=== PATIENT | male | born 1990 | race Caucasian/White ===

== ENCOUNTER 2017-10-26 20:00 | Inpatient (IN) | payer BC, OTHER ==
[~2017-10-26] VITALS: Ht 172.7 cm; Wt 103.9 kg
[2017-10-26] MEDS ORDERED: normal saline 1000ML IV soln IVB ONE (20:10)
[2017-10-26 20:26] LABS: BASOPHILS % (AUTO) 0.3 % (0-1); EOSINOPHILS # (AUTO) 0.3 X10'3 (0-0.9); EOSINOPHILS % (AUTO) 3.2 % (0-6); HEMATOCRIT 45.7 % (42.0-52.0); HEMOGLOBIN 15.5 g/dl (14.0-17.9); LYMPHOCYTES # (AUTO) 2.8 X10'3 (1.1-4.8); LYMPHOCYTES % (AUTO) 26.4 % (21-51); MEAN CORPUSCULAR HEMOGLOBIN 30.2 PG (27.0-31.0); MEAN CORPUSCULAR VOLUME 88.9 FL (78-98); MEAN PLATELET VOLUME 7.9 FL (7.4-10.4); NEUTROPHILS # (AUTO) 6.6 X10'3 (1.8-7.7); NEUTROPHILS % (AUTO) 61.1 % (42-75); PLATELET COUNT 212 X10'3 (140-440); RED BLOOD COUNT 5.14 X10'6 (4.70-6.10); RED CELL DISTRIBUTION WIDTH 13.4 % (11.5-14.5); WHITE BLOOD COUNT 10.8 X10'3 (4.5-11.0)
[2017-10-26 20:50] LABS: ALANINE AMINOTRANSFERASE 35 U/L (12-78); ALBUMIN 3.6 G/DL (3.4-5.0); ALKALINE PHOSPHATASE 102 IU/L (46-116); ANION GAP 10 (8-16); ASPARTATE AMINO TRANSFERASE 22 U/L (10-37); BILIRUBIN,TOTAL 0.4 MG/DL (0.1-1.0); BLOOD UREA NITROGEN 8 MG/DL (7-18); BUN/CREATININE RATIO 10.4 (5.4-32.0); CHLORIDE 105 MMOL/L (99-107); CREATININE 0.77 MG/DL (0.60-1.10); GLUCOSE 168 MG/DL (70-104); POTASSIUM 3.3 MMOL/L (3.5-5.1); SODIUM 141 MMOL/L (135-145); TOTAL CARBON DIOXIDE 26.3 MMOL/L (24-32); TOTAL PROTEIN 7.3 G/DL (6.4-8.2); eGFR > 90 ML/MIN
[2017-10-26 20:55] LABS: URINE AMPHETAMINE SCREEN NEGATIVE (Neg); URINE BARBITUATE SCREEN NEGATIVE (Neg); URINE BENZODIAZEPINES SCREEN NEGATIVE (Neg); URINE CANNABINOID SCREEN NEGATIVE (Neg); URINE COCAINE SCREEN NEGATIVE (Neg); URINE METHADONE SCREEN NEGATIVE (Neg); URINE OPIATE SCREEN NEGATIVE (Neg); URINE PHENCYCLIDINE SCREEN NEGATIVE (Neg)
[2017-10-26 21:06] LABS: PARTIAL THROMBOPLASTIN TIME 27 SECONDS (22-32); PROTHROMBIN TIME 10.8 SECONDS (9.0-12.0)
[2017-10-26 21:17] LABS: CLARITY,URINE Clear (Clear); COLOR,URINE Yellow (Yellow); GLUCOSE, URINE 100 mg/dl (Neg); KETONES,URINE Negative (Neg); LEUKOCYTE ESTERASE ,URINE Negative (Neg); NITRITES, URINE Negative (Neg); OCCULT BLOOD,URINE Negative (Neg); PH,URINE 6.5 (4.8-8.0); PROTEIN,URINE Negative (Neg); UROBILINOGEN,URINE 0.2 E.U/dL (0.2-1.0)
[2017-10-26 21:25] LABS: UA COLLECTION TYPE FOLEY CATH
[2017-10-26] MEDS: propofol 1000mg/100ml bottle 100 ML IV PRN (21:36)
[2017-10-26 22:20] LABS: CREATINE KINASE 82 U/L (39-308)
[2017-10-26] MEDS ORDERED: ondansetron/PF 4mg/2ml inj IV PRN (22:25)
[2017-10-26] MEDS ORDERED: midazolam 100mg in NS 100ml 100 ML IV PRN (22:25)
[2017-10-26] MEDS ORDERED: acetaminophen 325mg tablet PO PRN ×2 (22:25)
[2017-10-26] MEDS: normal saline 1000ml 1,000 ML IV SCH (22:25)
[2017-10-26] MEDS ORDERED: potassium Cl 20 mEq SR tablet PO PRN ×2 (22:25)
[2017-10-26] MEDS ORDERED: FENTANYL-0.9 % NACL/PF 100 ML IV PRN (22:25)
[2017-10-26] MEDS ORDERED: potassium Cl 40MEQ/NS 500ml 500 ML IV PRN ×2 (22:25)
[2017-10-26] MEDS ORDERED: ipratropium/albuterol 3ml nebule NEB PRN (22:25)
[2017-10-26] MEDS ORDERED: magnesium hydroxide 30ml (MOM) UD suspension PO PRN (22:25)
[2017-10-26] MEDS: K, MAG and/or Phos replacement - Verify level? MC SCH (22:25)
[2017-10-26 22:56] LABS: ABG BASE EXCESS -1.7 mmol/L (-2.0-3.0); ABG HCO3 24.8 mmol/L (22.0-26.0); ABG OXYGEN SATURATION 98.3 % (95-98); ABG PCO2 (T) 44.7 mmHg (35.0-48.0); ABG PH (T) 7.353 (7.350-7.450); ABG PO2 (T) 121.8 mmHg (83-108); ALLEN'S TEST Positive; FCOHb 3.6 % (0.5-1.5); FMetHb 0.2 % (0.3-1.12); FO2Hb 94.6 % (94-100); MINUTE VOLUME 9 L/min; PATIENT TEMPERATURE 35.3; PEEP 5 cm H2O; RESPIRATORY RATE 16 b/min; RESPIRATORY RATE (OBSERVED) 16 b/min; TIDAL VOLUME 500 mL; TOTAL HEMOGLOBIN 15.9 G/dl (14.0-18.0)
[2017-10-26 23:16] LABS: OSMOLALITY 291 MOSM/K (280-300)
[2017-10-26 23:31] LABS: ACETAMINOPHEN < 2.0 UG/ML (10-30)
[2017-10-26 23:45] VITALS: BP 166/84
[2017-10-27] VITALS (24 sets, daily range): BP systolic 98–164; BP diastolic 53–86
[2017-10-27] MEDS: propofol 1000mg/100ml bottle 100 ML IV PRN (00:21)
[2017-10-27 03:25] LABS: ABG BASE EXCESS -0.7 mmol/L (-2.0-3.0); ABG HCO3 24.1 mmol/L (22.0-26.0); ABG OXYGEN SATURATION 98.9 % (95-98); ABG PCO2 (T) 37.5 mmHg (35.0-48.0); ABG PH (T) 7.419 (7.350-7.450); ABG PO2 (T) 166.9 mmHg (83-108); ALLEN'S TEST Positive; FCOHb 1.2 % (0.5-1.5); FMetHb 0.2 % (0.3-1.12); FO2Hb 97.5 % (94-100); MINUTE VOLUME 9 L/min; PATIENT TEMPERATURE 35.5; PEEP 5 cm H2O; RESPIRATORY RATE 16 b/min; RESPIRATORY RATE (OBSERVED) 16 b/min; TIDAL VOLUME 500 mL; TOTAL HEMOGLOBIN 15.3 G/dl (14.0-18.0)
[2017-10-27 05:18] LABS: BASOPHILS # (AUTO) 0.1 X10'3 (0-0.2); BASOPHILS % (AUTO) 0.4 % (0-1); EOSINOPHILS # (AUTO) 0.3 X10'3 (0-0.9); EOSINOPHILS % (AUTO) 1.6 % (0-6); HEMATOCRIT 44.1 % (42.0-52.0); HEMOGLOBIN 14.8 g/dl (14.0-17.9); LYMPHOCYTES # (AUTO) 2.9 X10'3 (1.1-4.8); LYMPHOCYTES % (AUTO) 17.7 % (21-51); MEAN CORPUSCULAR HEMOGLOBIN 30.1 PG (27.0-31.0); MEAN CORPUSCULAR HGB CONC 33.6 % (33.0-36.5); MEAN CORPUSCULAR VOLUME 89.7 FL (78-98); MEAN PLATELET VOLUME 8.3 FL (7.4-10.4); MONOCYTES # (AUTO) 1.3 X10'3 (0-0.9); MONOCYTES % (AUTO) 7.8 % (2-12); NEUTROPHILS % (AUTO) 72.5 % (42-75); PLATELET COUNT 183 X10'3 (140-440); RED BLOOD COUNT 4.91 X10'6 (4.70-6.10); RED CELL DISTRIBUTION WIDTH 13.6 % (11.5-14.5); WHITE BLOOD COUNT 16.6 X10'3 (4.5-11.0)
[2017-10-27 05:43] LABS: ALANINE AMINOTRANSFERASE 32 U/L (12-78); ALBUMIN 3.5 G/DL (3.4-5.0); ALBUMIN/GLOBULIN RATIO 1.1 (1.1-1.5); ALKALINE PHOSPHATASE 94 IU/L (46-116); ANION GAP 7 (8-16); ASPARTATE AMINO TRANSFERASE 28 U/L (10-37); BILIRUBIN,TOTAL 0.7 MG/DL (0.1-1.0); BLOOD UREA NITROGEN 8 MG/DL (7-18); BUN/CREATININE RATIO 11.3 (5.4-32.0); CALCIUM 8.3 MG/DL (8.5-10.1); CHLORIDE 108 MMOL/L (99-107); CREATININE 0.71 MG/DL (0.60-1.10); GLUCOSE 91 MG/DL (70-104); MAGNESIUM 1.9 MG/DL (1.5-2.4); PHOSPHORUS 3.3 MG/DL (2.3-4.5); POTASSIUM 3.5 MMOL/L (3.5-5.1); SODIUM 141 MMOL/L (135-145); TOTAL CARBON DIOXIDE 25.6 MMOL/L (24-32); TOTAL PROTEIN 6.7 G/DL (6.4-8.2); eGFR > 90 ML/MIN
[2017-10-27] MEDS: enoxaparin 40mg/0.4ml syringe SUBCUT SCH (07:45)
[2017-10-27] MEDS: pantoprazole 40 MG vial IV SCH (07:45)
[2017-10-27] MEDS: K, MAG and/or Phos replacement - Verify level? MC SCH (08:00)
[2017-10-27] MEDS ORDERED: UNABLE TO OBTAIN (08:54)
[2017-10-27] MEDS ORDERED: racepinephrine 11.25mg/0.5ml nebule NEB PRN (11:45)
[2017-10-27] MEDS ORDERED: ipratropium/albuterol 3ml nebule NEB PRN (11:45)
[2017-10-27] MEDS: normal saline 1000ml 1,000 ML IV SCH ×2 (12:02→22:06)
[2017-10-27] MEDS: ipratropium/albuterol 3ml nebule NEB SCH ×2 (16:23→20:23)
[2017-10-27] MEDS: mineral oil/petrolatum ophthal oint EACHEYE SCH (22:06)
[2017-10-28] VITALS (24 sets, daily range): BP systolic 109–154; BP diastolic 63–92
[2017-10-28] MEDS: ipratropium/albuterol 3ml nebule NEB SCH ×2 (03:36→07:49)
[2017-10-28 04:55] LABS: BASOPHILS % (AUTO) 0.3 % (0-1); EOSINOPHILS # (AUTO) 0.3 X10'3 (0-0.9); EOSINOPHILS % (AUTO) 2.2 % (0-6); HEMATOCRIT 39.5 % (42.0-52.0); HEMOGLOBIN 13.5 g/dl (14.0-17.9); LYMPHOCYTES # (AUTO) 3.1 X10'3 (1.1-4.8); LYMPHOCYTES % (AUTO) 27.1 % (21-51); MEAN CORPUSCULAR HEMOGLOBIN 30.3 PG (27.0-31.0); MEAN CORPUSCULAR HGB CONC 34.2 % (33.0-36.5); MEAN CORPUSCULAR VOLUME 88.6 FL (78-98); MEAN PLATELET VOLUME 8.4 FL (7.4-10.4); MONOCYTES # (AUTO) 0.9 X10'3 (0-0.9); MONOCYTES % (AUTO) 7.9 % (2-12); NEUTROPHILS # (AUTO) 7.1 X10'3 (1.8-7.7); NEUTROPHILS % (AUTO) 62.5 % (42-75); PLATELET COUNT 184 X10'3 (140-440); RED BLOOD COUNT 4.46 X10'6 (4.70-6.10); RED CELL DISTRIBUTION WIDTH 13.6 % (11.5-14.5); WHITE BLOOD COUNT 11.4 X10'3 (4.5-11.0)
[2017-10-28 05:25] LABS: ALANINE AMINOTRANSFERASE 31 U/L (12-78); ALBUMIN 3.4 G/DL (3.4-5.0); ALBUMIN/GLOBULIN RATIO 1.1 (1.1-1.5); ALKALINE PHOSPHATASE 92 IU/L (46-116); ANION GAP 10 (8-16); ASPARTATE AMINO TRANSFERASE 23 U/L (10-37); BILIRUBIN,TOTAL 0.6 MG/DL (0.1-1.0); BLOOD UREA NITROGEN 7 MG/DL (7-18); BUN/CREATININE RATIO 9.2 (5.4-32.0); CALCIUM 8.2 MG/DL (8.5-10.1); CHLORIDE 107 MMOL/L (99-107); CREATININE 0.76 MG/DL (0.60-1.10); GLUCOSE 84 MG/DL (70-104); MAGNESIUM 1.8 MG/DL (1.5-2.4); POTASSIUM 3.4 MMOL/L (3.5-5.1); SODIUM 142 MMOL/L (135-145); TOTAL CARBON DIOXIDE 25.3 MMOL/L (24-32); TOTAL PROTEIN 6.6 G/DL (6.4-8.2); eGFR > 90 ML/MIN
[2017-10-28] MEDS: mineral oil/petrolatum ophthal oint EACHEYE SCH ×3 (06:42→19:47)
[2017-10-28] MEDS: K, MAG and/or Phos replacement - Verify level? MC SCH (06:43)
[2017-10-28] MEDS: pantoprazole 40 MG vial IV SCH (07:32)
[2017-10-28] MEDS: enoxaparin 40mg/0.4ml syringe SUBCUT SCH (07:33)
[2017-10-28] MEDS: normal saline 1000ml 1,000 ML IV SCH (14:59)
[2017-10-29] VITALS (24 sets, daily range): BP systolic 74–138; BP diastolic 63–80
[2017-10-29] MEDS: mineral oil/petrolatum ophthal oint EACHEYE SCH ×4 (02:00→20:00)
[2017-10-29] MEDS: normal saline 1000ml 1,000 ML IV SCH ×2 (03:32→17:03)
[2017-10-29 05:45] LABS: BASOPHILS % (AUTO) 0.3 % (0-1); EOSINOPHILS # (AUTO) 0.4 X10'3 (0-0.9); EOSINOPHILS % (AUTO) 3.7 % (0-6); HEMATOCRIT 40.2 % (42.0-52.0); HEMOGLOBIN 13.8 g/dl (14.0-17.9); LYMPHOCYTES % (AUTO) 28.8 % (21-51); MEAN CORPUSCULAR HEMOGLOBIN 30.6 PG (27.0-31.0); MEAN CORPUSCULAR HGB CONC 34.2 % (33.0-36.5); MEAN CORPUSCULAR VOLUME 89.5 FL (78-98); MEAN PLATELET VOLUME 8.2 FL (7.4-10.4); MONOCYTES % (AUTO) 9.8 % (2-12); NEUTROPHILS # (AUTO) 5.9 X10'3 (1.8-7.7); NEUTROPHILS % (AUTO) 57.4 % (42-75); PLATELET COUNT 174 X10'3 (140-440); RED BLOOD COUNT 4.49 X10'6 (4.70-6.10); RED CELL DISTRIBUTION WIDTH 13.2 % (11.5-14.5); WHITE BLOOD COUNT 10.3 X10'3 (4.5-11.0)
[2017-10-29 07:22] LABS: ALANINE AMINOTRANSFERASE 29 U/L (12-78); ALBUMIN 3.3 G/DL (3.4-5.0); ALKALINE PHOSPHATASE 89 IU/L (46-116); ANION GAP 8 (8-16); ASPARTATE AMINO TRANSFERASE 21 U/L (10-37); BILIRUBIN,TOTAL 0.5 MG/DL (0.1-1.0); BLOOD UREA NITROGEN 10 MG/DL (7-18); BUN/CREATININE RATIO 11.6 (5.4-32.0); CALCIUM 8.6 MG/DL (8.5-10.1); CHLORIDE 107 MMOL/L (99-107); CREATININE 0.86 MG/DL (0.60-1.10); GLUCOSE 81 MG/DL (70-104); PHOSPHORUS 3.4 MG/DL (2.3-4.5); SODIUM 142 MMOL/L (135-145); TOTAL CARBON DIOXIDE 27.2 MMOL/L (24-32); TOTAL PROTEIN 6.7 G/DL (6.4-8.2); eGFR > 90 ML/MIN
[2017-10-29] MEDS: K, MAG and/or Phos replacement - Verify level? MC SCH (08:00)
[2017-10-29] MEDS: pantoprazole 40 MG vial IV SCH (08:32)
[2017-10-29] MEDS: enoxaparin 40mg/0.4ml syringe SUBCUT SCH (08:33)
[2017-10-29] MEDS ORDERED: ALPR-624 PO (12:19)
[2017-10-29] MEDS ORDERED: CYCL-1 PO (12:20)
[2017-10-30] VITALS (13 sets, daily range): BP systolic 111–133; BP diastolic 62–78
[2017-10-30] MEDS: mineral oil/petrolatum ophthal oint EACHEYE SCH ×2 (00:48→07:54)
[2017-10-30] MEDS: normal saline 1000ml 1,000 ML IV SCH (03:55)
[2017-10-30 05:16] LABS: BASOPHILS % (AUTO) 0.3 % (0-1); EOSINOPHILS # (AUTO) 0.3 X10'3 (0-0.9); EOSINOPHILS % (AUTO) 3.6 % (0-6); HEMOGLOBIN 13.9 g/dl (14.0-17.9); LYMPHOCYTES # (AUTO) 2.9 X10'3 (1.1-4.8); LYMPHOCYTES % (AUTO) 31.4 % (21-51); MEAN CORPUSCULAR HEMOGLOBIN 30.4 PG (27.0-31.0); MEAN CORPUSCULAR HGB CONC 33.9 % (33.0-36.5); MEAN CORPUSCULAR VOLUME 89.7 FL (78-98); MEAN PLATELET VOLUME 8.2 FL (7.4-10.4); MONOCYTES % (AUTO) 10.6 % (2-12); NEUTROPHILS % (AUTO) 54.1 % (42-75); PLATELET COUNT 183 X10'3 (140-440); RED BLOOD COUNT 4.57 X10'6 (4.70-6.10); RED CELL DISTRIBUTION WIDTH 13.4 % (11.5-14.5); WHITE BLOOD COUNT 9.2 X10'3 (4.5-11.0)
[2017-10-30 06:11] LABS: ALANINE AMINOTRANSFERASE 28 U/L (12-78); ALBUMIN 3.3 G/DL (3.4-5.0); ALBUMIN/GLOBULIN RATIO 0.9 (1.1-1.5); ALKALINE PHOSPHATASE 86 IU/L (46-116); ANION GAP 7 (8-16); ASPARTATE AMINO TRANSFERASE 19 U/L (10-37); BILIRUBIN,TOTAL 0.4 MG/DL (0.1-1.0); BLOOD UREA NITROGEN 10 MG/DL (7-18); BUN/CREATININE RATIO 11.5 (5.4-32.0); CALCIUM 8.6 MG/DL (8.5-10.1); CHLORIDE 107 MMOL/L (99-107); CREATININE 0.87 MG/DL (0.60-1.10); GLUCOSE 91 MG/DL (70-104); PHOSPHORUS 3.5 MG/DL (2.3-4.5); POTASSIUM 3.7 MMOL/L (3.5-5.1); SODIUM 144 MMOL/L (135-145); TOTAL CARBON DIOXIDE 29.7 MMOL/L (24-32); TOTAL PROTEIN 6.8 G/DL (6.4-8.2); eGFR > 90 ML/MIN
[2017-10-30] MEDS: K, MAG and/or Phos replacement - Verify level? MC SCH (07:56)
[2017-10-30] MEDS: pantoprazole 40 MG vial IV SCH (08:26)
[2017-10-30] MEDS: enoxaparin 40mg/0.4ml syringe SUBCUT SCH (08:27)
[2018-10-26] MEDS ORDERED: etomidate 2mg/ml inj. ONE (08:00)
[2018-10-26] MEDS ORDERED: rocuronium 10mg/ml inj IV ONE (08:00)
== END 2017-10-30 13:30 | disposition home or self-care (01) | DRG 917 ==
LOC: ER 20:01 → ED HOLD 22:25 → CICU 2S 23:33
PROVIDERS: ATTEND Internal Medicine Critical Care Medicine
PROC: 5A1935Z Respiratory Ventilation, Less than 24 Consecutive Hours (ICD-10-PCS; principal; 2017-10-26)
PROC: 0BH17EZ Insertion of Endotracheal Airway into Trachea, Via Natural or Artificial Opening (ICD-10-PCS; 2017-10-26)
DX: T42.4X1A Poisoning by benzodiazepines, accidental (unintentional), initial encounter (principal); J96.00 Acute respiratory failure, unspecified whether with hypoxia or hypercapnia; G93.40 Encephalopathy, unspecified; G25.9 Extrapyramidal and movement disorder, unspecified; T48.1X1A Poisoning by skeletal muscle relaxants [neuromuscular blocking agents], accidental (unintentional), initial encounter; R32 Unspecified urinary incontinence; F32.9 Major depressive disorder, single episode, unspecified; T51.91XA Toxic effect of unspecified alcohol, accidental (unintentional), initial encounter; Z91.5 Personal history of self-harm; Y92.89 Other specified places as the place of occurrence of the external cause
CPT/HCPCS: 36415; 36600; 51702; 70450; 71010; 80053; 80305; 80320; 80329; 81003; 82140; 82550; 82803; 82948; 83735; 83930; 84100; 84145; 84443; 85018; 85025; 85610; 85730; 87070; 93005; 94002; 94003; 94640; 94667; 94668; 94760; 96360; 97116; 97161; 99291; A6213; A6258; C1758; C9113; J1650; J2250; J2704; J3480; J3490; J7030